=== PATIENT | female | born 1935 | race Caucasian/White ===

== ENCOUNTER → 2018-11-12 08:16 | Outpatient (CLI) | payer MEDICARE, OTHER ==
--- NOTE | ~2018-11-12 | EC ---
PATIENT:VALERIE VU DATE OF SERVICE: 11/12/18 SEX: F MEDICAL RECORD: [id number] DATE OF : 37 LOCATION:D[facility] AGE OF PATIENT: 82 ADMISSION DATE: 11/12/18 REFERRING PHYSICIAN: INTERPRETING PHYSICIAN: ANA LAURA BRAGG MD ECHOCARDIOGRAM REPORT ECHO CHARGES 4 ECHO COMPLETE Date: 11/12/18 CLINICAL DIAGNOSIS: CARDIOMYOPATHY/CVA/A-FIB H/O HTN ECHOCARDIOGRAPHIC MEASUREMENTS (adult normal given) AC root (d.<3.7cm) 3.2 cm LV Septum d (<1.2 cm> 1.2 cm Valve Excursion 0.7 cm LV Septum (systole) 1.5 cm Left Atria (s.<4.0cm> 4.9 cm LVPW d(<1.2cm) 1.1 cm RV (d.<2.3cm) 2.8 cm LVPW (sytole) 1.3 cm LV diastole(<5.6CM) 3.3 cm MV E-F(>70mm/sec) cm LV systole 2.4 cm LVOT Diameter 1.8 cm MV exc.(>10mm) cm Est.ejection fraction (50-75%) % DOPPLER: LVIT cm/sec A 98.0 cm/sec E 53.0 cm/sec LA cm/sec RVSP 40.0 mmHg LVOT 69.0 cm/sec AOP1/2T 1326.m/s Asc. Ao 296.0cm/sec RVOT 56.0 cm/sec RA cm/sec PA 93.0 cm/sec AV Gradient Peak 35.1 mmHg AV Mean 18.4 mmHg AV Area 0.6 cm MV Gradient Peak 3.9 mmHg MV Mean 1.5 mmHg MV Area cm COMMENTS: OP - HC Interface Analyst: 1 NANI DE SANTIAGOOE Network Systems Operator: 3 Dr. Biswas TAPE# PACS Pericardial Effusion N DATE OF SERVICE: Adequate 2D, color flow, spectral Doppler, and M-mode. Borderline LVH. LV internal dimension is normal. 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 Aortic valve is calcified. Peak gradient of 35 mmHg putting this in the mild range. There is mild AI present as well. Left atrium is dilated at 4.9 cm. Mitral valve shows no prolapse. Mild MR. Right-sided chamber is grossly normal. Mild TR. TRANSINT:[id number] Voice Confirmation ID: [id number] DOCUMENT ID: [id number] ECHOCARDIOGRAM REPORT [id number] VALERIE VU GREGORY A MD CC: [id number] DICTATION DATE: 11/13/18 1355 TECHNICAL ADMINISTRATIVE ASSISTANT: 11/13/18 1533 DEP CLI 11/12/18 [place] [id number] [place] [id number]
== END | disposition home or self-care (01) ==
LOC: D.HCCARDIO 08:16
PROVIDERS: ATTEND Internal Medicine Interventional Cardiology
DX: I42.9 Cardiomyopathy, unspecified (principal)

== ENCOUNTER → 2020-02-01 09:39 | Outpatient (CLI) | payer MEDICARE, OTHER ==
--- NOTE | ~2020-02-01 | EC ---
PATIENT:VALERIE VU DATE OF SERVICE: 02/01/20 SEX: F MEDICAL RECORD: [id number] DATE OF : 37 LOCATION:D.[facility] AGE OF PATIENT: 84 ADMISSION DATE: 02/01/20 REFERRING PHYSICIAN: INTERPRETING PHYSICIAN: ANA LAURA BRAGG MD ECHOCARDIOGRAM REPORT ECHO CHARGES 5 ECHO LIMITED Date: 02/01/20 CLINICAL DIAGNOSIS: CARDIOMYOPATHY ASSESS EF ECHOCARDIOGRAPHIC MEASUREMENTS (adult normal given) AC root (d.<3.7cm) cm LV Septum d (<1.2 cm> cm Valve Excursion cm LV Septum (systole) cm Left Atria (s.<4.0cm> 4.0 cm LVPW d(<1.2cm) cm RV (d.<2.3cm) 4.2 cm LVPW (sytole) cm LV diastole(<5.6CM) 5.6 cm MV E-F(>70mm/sec) cm LV systole 4.2 cm LVOT Diameter 1.0 cm MV exc.(>10mm) cm Est.ejection fraction (50-75%) % DOPPLER: LVIT cm/sec A 88.0 cm/sec E 56.0 cm/sec LA cm/sec RVSP 32 mmHg LVOT 89 cm/sec AOP1/2T m/s Asc. Ao 318 cm/sec RVOT cm/sec RA cm/sec PA cm/sec AV Gradient Peak 40.50mmHg AV Mean 22.44mmHg AV Area 0.3 cm MV Gradient Peak 4.36 mmHg MV Mean 1.62 mmHg MV Area cm COMMENTS: Fire Operations Forester: 2 ALEX GIBBS Copper Roller Handler Printing: 3 Dr. Biswas TAPE# PACS Pericardial Effusion N DATE OF SERVICE: Adequate 2D, color flow imaging, spectral Doppler, and M-Mode LVH is present. LV internal dimension is normal. Wall motion is normal. EF is greater than or equal to 55%. Aortic valve is calcified with restriction of leaflet motion. Peak gradient 40 mmHg, putting this in moderate range. Left atrium is normal at 4.0 cm. Mitral valve shows no prolapse. Mild MR. Right-sided chambers are grossly normal. Mild TR. TRANSINT:[id number] Voice Confirmation ID: [id number] DOCUMENT ID: [id number] ECHOCARDIOGRAM REPORT [id number] VALERIE VU ANA LAURA BRAGG MD CC: [id number] DICTATION DATE: 02/02/20 1330 PAI GOW DEALER: 02/02/20 2237 DEP CLI 02/01/20 [place] [id number] [place] [address]
== END | disposition home or self-care (01) ==
LOC: D.HCCECHO 09-02 13:30
PROVIDERS: ATTEND Internal Medicine Interventional Cardiology
DX: I42.9 Cardiomyopathy, unspecified (principal); I10 Essential (primary) hypertension